=== PATIENT | male | born 1995 | race Caucasian/White ===

== ENCOUNTER 2016-07-01 08:39 | Emergency (ER) | payer OTHER ==
[2016-07-01 08:51] VITALS: BP 137/64; PULSE 61; TEMP 98.3; BMI 29.8
--- NOTE | 2016-07-01 09:50 | PDOC ---
[id number] PAIN, NUMBNESS/ UPPER EXTREMITIES Time Seen by Provider: 07/01/16 09:20 - History of Present Illness Initial Comments: 07/01/16 09:46 CHIEF COMPLAINT: hand numbness, leg tingling HISTORY OF PRESENT ILLNESS: 20 yo M with no PMH presents to fast track with sudden onset numbness to hands and tingling of legs. Patient states he was using the bathroom this morning when he had some stomach discomfort, loose stools, and then "suddenly my face, hands, and legs felt tingly, and I couldn't erally move my hands." No recent travel or sick contacts. PAST MEDICAL HISTORY: Denies past medical history FAMILY HISTORY: Denies SOCIAL HISTORY: Denies tobacco, alcohol, illicit drug use. SURGICAL HISTORY: Denies ALLERGIES: No known drug allergies REVIEW OF SYSTEMS General/Constitutional: Denies fever or chills. Denies weakness, weight change. HEENT: Denies change in vision. Denies ear pain or discharge. Denies sore throat. Cardiovascular: Denies chest pain or shortness of breath. Respiratory: Denies cough, wheezing, or hemoptysis. Gastrointestinal: Denies nausea, vomiting, diarrhea or constipation. Denies rectal bleeding. Genitourinary: Denies dysuria, frequency, or change in urination. Musculoskeletal: Numbness and tingling to hands and legs. Skin and breasts: Denies rash or easy bruising. Neurologic: Denies headache, vertigo, loss of consciousness, or loss of sensation. PHYSICAL EXAM General Appearance: Well-appearing, appropriately dressed. No apparent distress , no intoxication. HEENT: EOMI, PERRLA, normal ENT inspection, normal voice, TMs normal, pharynx normal. No conjunctival pallor. No photophobia, scleral icterus. Neck: Supple. Trachea midline. No tenderness, rigidity, carotid bruit, stridor , lymphadenopathy, or thyromegaly. Respiratory/Chest: Lungs CTAB. No shortness of breath, chest tenderness, respiratory distress, accessory muscle use. No crackles, rales, rhonchi, stridor , wheezing, dullness Cardiovascular: RRR. S1, S2. No JVD, murmur, bradycardia, tachycardia. Vascular Pulses: Dorsalis-Pedis (R): 2+, Dorsalis-Pedis (L): 2+ Gastrointestinal/Abdominal: Normal bowel sounds. Abdomen soft, non-distended. No tenderness or rebound tenderness. No organomegaly, pulsatile mass, guarding , hernia, hepatomegaly, splenomegaly. Lymphatic: No adenopathy, tenderness. Musculoskeletal/Extremities: Normal inspection. FROM of all extremities, normal capillary refill. Pelvis Stable. No CVA tenderness. No tenderness to extremities, pedal edema, swelling, erythema or deformity. Integumentary: Appropriate color, dry, warm. 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 Fully oriented, alert. Appropriate mood/affect. Motor strength 5/5. No appreciable EOM palsy, facial droop or sensory deficit. 07/30/16 16:51 Past History - Past Medical History Allergies/Adverse Reactions: Allergies Allergy/AdvReac Type Severity Reaction Status Date / Time No Known Allergies Allergy Verified 07/01/16 08:51 Home Medications: Ambulatory Orders NK [No Known Home Medication] 07/01/16 Other medical history: NONE - Psycho/Social/Smoking Cessation Hx Anxiety: No Suicidal Ideation: No Smoking History: Never smoked Hx Alcohol Use: No Drug/Substance Use Hx: No Substance Use Type: None *Physical Exam - Vital Signs Last Vital Signs Temp Pulse Resp BP Pulse Ox 98.3 F 61 20 137/64 99 07/01/16 08:48 07/01/16 08:48 07/01/16 08:48 07/01/16 08:48 07/01/16 08:48 Medical Decision Making - Medical Decision Making 07/30/16 16:52 20 yo M with no PMH presents to ED with numbness and tingling to hands and legs. Exam unremarkable, no loss of sensation appreciated to upper and lower extremities b/l. Advised patient to f/u with neurology for further evaluation of neuropathy. Patient verbalized understanding and agrees to plan. *DC/Admit/Observation/Transfer Diagnosis at time of Disposition: Neuropathy - Discharge Dispostion Disposition: HOME Condition at time of disposition: Stable Admit: No - Referrals Referrals: Marjan Leon MD [Primary Care Provider] - Calixto Garcia MD [Staff Physician] - - Patient Instructions Printed Discharge Instructions: Peripheral Neuropathy Additional Instructions: As discussed, you must follow up with a neurologist by the end of the week for further evaluation of your numbness and tingling. If you experience any headache, dizziness, blurry vision, difficulty speaking, swallowing, or have any changes when walking, or develop any new or worsening symptoms, please return to the ER. - Post Discharge Activity Work/School Note: Back to Work
== END 2016-07-01 09:55 | disposition home or self-care (01) ==
LOC: JERFT 08:39
DX: G62.9 Polyneuropathy, unspecified (principal)
CPT/HCPCS: 99281-25

== ENCOUNTER 2017-01-05 01:36 | Emergency (ER) | payer OTHER ==
--- NOTE | 2017-01-05 02:22 | PDOC ---
Attending Attestation - HPI HPI: 01/05/17 04:02 Patient is a 21 year old male with no significant past medical history who presents to the ED with complaints of diffuse abdominal pain that began tonight at 11pm. Patient reports diffuse abdominal pain beginning tonight after eating dinner. He reports eating octopus and rice but states he is the only individual who is experiencing abdominal pain. Patient reports pain is a stabbing pain rated a 10/10 intensity. He reports experiencing episodes of nausea and vomiting x6 secondary to abdominal pain. Denies urinary problems. Denies fever, chills. Denies any other symptoms. Allergies:None Social history: No smoking. No alcohol. No illicit drugs. Surgical history: None PMD: PCP - Physicial Exam PE: 01/05/17 04:02 GENERAL: +Appears uncomfortable. Awake, alert, and fully oriented, HEAD: No signs of trauma EYES: PERRLA, EOMI, sclera anicteric, conjunctiva clear ENT: Auricles normal inspection, hearing grossly normal, nares patent, oropharynx clear without exudates. Moist mucosa NECK: Normal ROM, supple, no lymphadenopathy, JVD, or masses LUNGS: Breath sounds equal, clear to auscultation bilaterally. No wheezes, and no crackles HEART: Regular rate and rhythm, normal S1 and S2, no murmurs, rubs or gallops ABDOMEN: +Mild epigastric tenderness. Soft, normoactive bowel sounds. No guarding, no rebound. No masses EXTREMITIES: Normal range of motion, no edema. No clubbing or cyanosis. No cords, erythema, or tenderness NEUROLOGICAL: Cranial nerves II through XII grossly intact. Normal speech, normal gait SKIN: Warm, Dry, normal turgor, no rashes or lesions noted. <Thai Willett - Last Filed: 01/05/17 04:02> - Resident Resident Name: Ray Teran - ED Attending Attestation I have performed the following: I have examined & evaluated the patient, The case was reviewed & discussed with the resident, I agree w/resident's findings & plan, Exceptions are as noted - Medical Decision Making Patient improved with GI cocktail. No signs of acute abdomen on exam. Stable for DC home. <Melisa Jane - Last Filed: 01/08/17 08:04>
[2017-01-05 03:01] VITALS: BP 128/72; PULSE 76; BMI 29.8
--- NOTE | 2017-01-05 03:16 | PDOC ---
History of Present Illness - General Chief Complaint: Pain Stated Complaint: ABD PAIN Time Seen by Provider: 01/05/17 02:10 History Source: Patient Exam Limitations: No Limitations - History of Present Illness Initial Comments: 01/05/17 03:10 21 y.o M with no pmh presenting with abdominal pain. Patient states he ate dinner around 8 pm. Around 10 pm he began having cramping/stabbing epigastric pain that gradually increased in intensity. The pain was 10/10 on arrival and nonradiating. Patient took 2 ibuprofen with no improvement in his symptoms. He endorses nausea and 5-6 episodes of emesis. Patient denies diarrhea, back pain, dysuria, hematuria. PSH: none All: nkda SH: denies PCP: patient does not have Past History - Past Medical History Allergies/Adverse Reactions: Allergies Allergy/AdvReac Type Severity Reaction Status Date / Time No Known Allergies Allergy Verified 01/05/17 03:00 Home Medications: Ambulatory Orders NK [No Known Home Medication] 07/01/16 - Suicide/Smoking/Psychosocial Hx Smoking History: Never smoked Have you smoked in the past 12 months: No Information on smoking cessation initiated: No Hx Alcohol Use: No Drug/Substance Use Hx: No Substance Use Type: None Review of Systems - Review of Systems Able to Perform ROS?: Yes Comments:: 01/05/17 03:22 GENERAL/CONSTITUTIONAL: No fever or chills. No weakness. HEAD, EYES, EARS, NOSE AND THROAT: No change in vision. No ear pain or discharge. No sore throat. CARDIOVASCULAR: No chest pain or shortness of breath RESPIRATORY: No cough, wheezing, or hemoptysis. GASTROINTESTINAL: +nausea, +vomiting, No diarrhea or constipation. +Abdominal pain GENITOURINARY: No dysuria, frequency, or change in urination. MUSCULOSKELETAL: No joint or muscle swelling or pain. No neck or back pain. SKIN: No rash NEUROLOGIC: No headache, vertigo, loss of consciousness, or change in strength/ sensation. ENDOCRINE: No increased thirst. No abnormal weight change HEMATOLOGIC/LYMPHATIC: No anemia, easy bleeding, or history of blood clots. ALLERGIC/IMMUNOLOGIC: No hives or skin allergy. *Physical Exam - Vital Signs Last Vital Signs Temp Pulse Resp BP Pulse Ox 76 16 128/72 100 01/05/17 03:00 01/05/17 03:00 01/05/17 03:00 01/05/17 03:00 - Physical Exam Comments: 01/05/17 03:22 GENERAL: Awake, alert, and fully oriented, in mild distress HEAD: No signs of trauma, normocephalic, atraumatic EYES: PERRLA, EOMI, sclera anicteric, conjunctiva clear ENT: Auricles normal inspection, hearing grossly normal, nares patent, oropharynx clear without exudates. Moist mucosa NECK: Normal ROM, supple, no lymphadenopathy, JVD, or masses LUNGS: No distress, speaks full sentences, clear to auscultation bilaterally HEART: Regular rate and rhythm, normal S1 and S2, no murmurs, rubs or gallops, peripheral pulses normal and equal bilaterally. ABDOMEN: Soft, +tenderness to palpation of epigastrium, normoactive bowel sounds. No guarding, no rebound. No masses. Negative dawkins's sign EXTREMITIES: Normal inspection, Normal range of motion, no edema. No clubbing or cyanosis. NEUROLOGICAL: Cranial nerves II through XII grossly intact. Normal speech, normal gait, no focal sensorimotor deficits SKIN: Warm, Dry, normal turgor, no rashes or lesions noted. ED Treatment Course - LABORATORY CBC & Chemistry Diagram: 01/05/17 03:50 01/05/17 03:50 Medical Decision Making - Medical Decision Making 01/05/17 05:16 21 y.o M with no pmh presenting with abdominal pain. Ddx: Acute cholecystitis vs acute bacterial gastroenteritis vs. gastritis vs. GERD Plan: CBC, CMP, Lipase, UA, UCX, morphine, IVF, Zofran 01/05/17 05:20 CBC- wbc 12.4 CMP- Tbili-1.2 Lipase- unremarkable 01/05/17 06:55 UA- unremarkable. Patient to be discharged. *DC/Admit/Observation/Transfer Diagnosis at time of Disposition: Abdominal pain Qualifiers: Abdominal location: epigastric Qualified Code(s): R10.13 - Epigastric pain; R10.13 - Epigastric pain - Discharge Dispostion Disposition: HOME Condition at time of disposition: Stable - Referrals Referrals: Marjan Leon MD [Primary Care Provider] - - Patient Instructions Printed Discharge Instructions: DI for Abdominal Pain-Adult Additional Instructions: Please follow up with a primary care provider within 1 week. If you have chest pain, shortness of breath, or any new/worsening symptoms please come back to the hospital immediately.
[2017-01-05] MEDS ORDERED: morphine CARPU-JECT 2 MG/1 ML DISP.SYRIN IVPUSH ONE (03:21)
[2017-01-05] MEDS ORDERED: ONDANSETRON 4 MG/2 ML VIAL IVPUSH ONE (03:21)
[2017-01-05] MEDS ORDERED: FAMOTIDINE 20 MG/50 ML IVPB 50 ML IVPB ONE ×2 (03:21→03:40)
[2017-01-05] MEDS ORDERED: SODIUM CHLORIDE 1,000 ML IV STA (03:21)
[2017-01-05] MEDS ORDERED: morphine CARPU-JECT 4 MG/1 ML DISP.SYRIN IVPUSH ONE (03:24)
[2017-01-05] MEDS ORDERED: morphine CARPU-JECT 4 MG/1 ML DISP.SYRIN ONE (03:40)
[2017-01-05] MEDS ORDERED: ONDANSETRON 4 MG/2 ML VIAL ONE (03:40)
[2017-01-05 03:59] LABS: BASOPHIL 0.5 % (0-2.0); EOSINOPHIL 0.5 % (0-4.5); MCHC 33.6 g/dl (32.0-35.9); MEAN CELL VOLUME 86.2 fl (80-96); NEUTROPHILS 81.4 % (42.8-82.8); PLATELET COUNT 235 K/MM3 (134-434); RDW 12.8 % (11.9-15.9); WHITE BLOOD COUNT 12.4 K/mm3 (4.0-10.0)
[2017-01-05 05:00] LABS: ALBUMIN 4.9 g/dl (3.4-5.0); ANION GAP 9 (8-16); BILIRUBIN,TOTAL 1.2 mg/dL (0.2-1.0); CALCIUM 9.7 mg/dL (8.5-10.1); CO2 26 mmol/L (21-32); CREATININE 1.2 mg/dL (0.7-1.3); GLUCOSE,RANDOM 113 mg/dL (74-106); SGOT/AST 14 U/L (15-37); SGPT/ALT 36 U/L (12-78); TOT PROT 7.9 g/dl (6.4-8.2)
[2017-01-05 05:01] LABS: ALK PHOS 78 U/L (45-117)
[2017-01-05 06:50] LABS: URINE APPEARANCE CLOUDY; URINE BILIRUBIN NEGATIVE (NEGATIVE); URINE BLOOD NEGATIVE (NEGATIVE); URINE COLOR YELLOW; URINE GLUCOSE (UA) NEGATIVE (NEGATIVE); URINE KETONE 1+ (NEGATIVE); URINE LEUK ESTERASE NEGATIVE (NEGATIVE); URINE NITRITE NEGATIVE (NEGATIVE); URINE UROBILINOGEN NEGATIVE mg/dL (0.2-1.0)
[2017-01-05 06:53] LABS: URINE PROTEIN 3+ (NEGATIVE)
[2017-01-05 06:55] LABS: URINE MUCUS RARE; URINE RBC 30 /hpf (0-3)
== END 2017-01-05 07:09 | disposition home or self-care (01) ==
LOC: JER 01:36
PROC: 3E033GC Introduction of Other Therapeutic Substance into Peripheral Vein, Percutaneous Approach (ICD-10-PCS; principal; 2017-01-05)
PROC: 3E033NZ Introduction of Analgesics, Hypnotics, Sedatives into Peripheral Vein, Percutaneous Approach (ICD-10-PCS; 2017-01-05)
PROC: 3E033NZ Introduction of Analgesics, Hypnotics, Sedatives into Peripheral Vein, Percutaneous Approach (ICD-10-PCS; 2017-01-05)
PROC: 3E033GC Introduction of Other Therapeutic Substance into Peripheral Vein, Percutaneous Approach (ICD-10-PCS; 2017-01-05)
DX: R10.13 Epigastric pain (principal)
CPT/HCPCS: 36415; 80053; 81003; 81015; 83690; 85025; 87086; 96365; 96375; 99283-25

== ENCOUNTER 2017-01-12 05:37 | Emergency (ER) | payer OTHER ==
--- NOTE | 2017-01-12 05:48 | PDOC ---
History of Present Illness - General History Source: Patient Exam Limitations: No Limitations - History of Present Illness Initial Comments: 01/12/17 05:56 21 y/o M with no PMHx presents to the ED with epigastric pain for one week. He reports associated nausea and back pain. Patient came to the ER last week for similar symptoms and was discharged with Zofran. Since then, the pain has gotten progressively worse. He now rates the pain an 8/10. His last BM was 3 days ago. He denies nausea, vomiting, diarrhea. <Laurel Loving - Last Filed: 01/12/17 05:56> <Montserrat Beckwith - Last Filed: 01/15/17 09:08> - General Stated Complaint: ABD PAIN Time Seen by Provider: 01/12/17 05:45 Past History <Laurel Loving - Last Filed: 01/12/17 05:56> - Surgical History Abdominal Surgery: No Appendectomy: No Cardiac Surgery: No Cholecystectomy: No Gastric Stapling: No GI Surgery: No Lung Surgery: No Neurologic Surgery: No - Immunization History Immunization Up to Date: No - Suicide/Smoking/Psychosocial Hx Smoking History: Never smoked Have you smoked in the past 12 months: No Hx Alcohol Use: No Drug/Substance Use Hx: No Substance Use Type: None <Montserrat Beckwith - Last Filed: 01/15/17 09:08> - Past Medical History Allergies/Adverse Reactions: Allergies Allergy/AdvReac Type Severity Reaction Status Date / Time No Known Allergies Allergy Verified 01/05/17 03:00 Home Medications: Ambulatory Orders Ondansetron HCl [Zofran] 4 mg PO DAILY #14 tablet 01/05/17 Mag Hydrox/Al Hydrox/Simeth [Mylanta Suspension -] 30 ml PO Q6H #1 bottle Ranitidine HCl [Zantac] 150 mg PO DAILY #30 tablet 01/12/17 Review of Systems - Review of Systems Able to Perform ROS?: Yes Comments:: 01/12/17 05:59 GENERAL/CONSTITUTIONAL: No fever or chills. No weakness. HEAD, EYES, EARS, NOSE AND THROAT: No change in vision. No ear pain or discharge. No sore throat. CARDIOVASCULAR: No chest pain or shortness of breath. RESPIRATORY: No cough, wheezing, or hemoptysis. GASTROINTESTINAL: (+) epigastric pain, nausea. No vomiting, diarrhea GENITOURINARY: No dysuria, frequency, or change in urination. MUSCULOSKELETAL: (+) back pain. No joint or muscle swelling or pain. No neck pain. SKIN: No rash NEUROLOGIC: No headache, vertigo, loss of consciousness, or change in strength/ sensation. ENDOCRINE: No increased thirst. No abnormal weight change. HEMATOLOGIC/LYMPHATIC: No anemia, easy bleeding, or history of blood clots. ALLERGIC/IMMUNOLOGIC: No hives or skin allergy. <Laurel Loving - Last Filed: 01/12/17 05:56> *Physical Exam - Vital Signs Last Vital Signs Temp Pulse Resp BP Pulse Ox 97.4 F L 55 L 19 133/74 100 01/12/17 05:53 01/12/17 05:53 01/12/17 05:53 01/12/17 05:53 01/12/17 05:53 - Physical Exam Comments: 01/12/17 06:00 GENERAL: Awake, alert, and fully oriented HEAD: No signs of trauma EYES: PERRLA, EOMI, sclera anicteric, conjunctiva clear ENT: Auricles normal inspection, hearing grossly normal, nares patent, oropharynx clear without exudates. Moist mucosa NECK: Normal ROM, supple, no lymphadenopathy, JVD, or masses LUNGS: Breath sounds equal, clear to auscultation bilaterally. No wheezes, and no crackles HEART: Regular rate and rhythm, normal S1 and S2, no murmurs, rubs or gallops ABDOMEN: Tenderness to RUQ, epigastric, and LUQ. Soft, normoactive bowel sounds. No guarding, no rebound. No masses EXTREMITIES: Normal range of motion, no edema. No clubbing or cyanosis. No cords, erythema, or tenderness NEUROLOGICAL: Cranial nerves II through XII grossly intact. Normal speech, normal gait SKIN: Warm, Dry, normal turgor, no rashes or lesions noted. Bedside US was negative for gallbladder wall thickening, pericholecystic fluid, or gallstones. <Laurel Loving - Last Filed: 01/12/17 05:56> ED Treatment Course - LABORATORY CBC & Chemistry Diagram: 01/12/17 05:50 01/12/17 06:05 <Montserrat Beckwith - Last Filed: 01/15/17 09:08> Medical Decision Making - Medical Decision Making 01/12/17 06:02 21yo male with epigastric pain and nausea -poss gastritis vs pud vs acute arelis -bedside gallbladder ultrasound negative for acute arelis -labs, urine, gi cocktail, reassess 01/12/17 06:41 pt still c/o nausea, just medicated. pt will be signed out to the oncoming ED physician pending labs and re-eval <Montserrat Beckwith - Last Filed: 01/15/17 09:08> *DC/Admit/Observation/Transfer - Attestations Scribe Attestion: 01/12/17 06:01 Documentation prepared by Laurel Loving, acting as biomedical field service engineer for Montserrat Beckwith DO. <Laurel Loving - Last Filed: 01/12/17 05:56> - Attestations Physician Attestion: 01/15/17 09:08 I, Dr. Montserrat Beckwith DO, attest that this document has been prepared under my direction and personally reviewed by me in its entirety. I further attest, that it accurately reflects all work, treatment, procedures and medical decision -making performed by me. <Montserrat Beckwith - Last Filed: 01/15/17 09:08> Diagnosis at time of Disposition: Abdominal pain Qualifiers: Abdominal location: epigastric Qualified Code(s): R10.13 - Epigastric pain - Discharge Dispostion Disposition: HOME Condition at time of disposition: Stable - Prescriptions Prescriptions: Mag Hydrox/Al Hydrox/Simeth [Mylanta Suspension -] 30 ml PO Q6H #1 bottle Ranitidine HCl [Zantac] 150 mg PO DAILY #30 tablet - Referrals Referrals: Marjan Leon MD [Primary Care Provider] - Gilbert Garcia MD [Staff Physician] - - Patient Instructions Printed Discharge Instructions: DI for Abdominal Pain-Adult Additional Instructions: Thank you for coming in to the ER today Please take medications as prescribed Please follow up with the GI doctor within 2-3 days Monitor yourself for any new symptoms, fevers, chills, vomiting, diarrhea Return to the ER for any other concerns or complaints - Post Discharge Activity Forms/Work/School Notes: Back to Work
[2017-01-12 05:55] VITALS: BMI 29.8
[2017-01-12] MEDS ORDERED: SODIUM CHLORIDE 0.9% 1000 ML INFUS.BAG IV ONE (05:59)
[2017-01-12] MEDS ORDERED: ONDANSETRON 4 MG/2 ML VIAL IVPUSH ONE (05:59)
[2017-01-12] MEDS ORDERED: FAMOTIDINE 20 MG/50 ML IVPB 50 ML IVPB ONE (05:59)
[2017-01-12] MEDS ORDERED: MAG HYDROX/AL HYDROX/SIMETH 30 ML UNIT-DOSE CUP PO ONE (05:59)
[2017-01-12] MEDS ORDERED: LIDOCAINE VISCOUS 2% ORAL/TOP 20 ML UNIT-DOSE CUP MM ONE (05:59)
[2017-01-12] MEDS ORDERED: ONDANSETRON *ODT* 4 MG TABLET SL ONE (06:01)
[2017-01-12] MEDS ORDERED: ONDANSETRON *ODT* 4 MG TABLET ONE (06:08)
[2017-01-12] MEDS ORDERED: MAG HYDROX/AL HYDROX/SIMETH 30 ML UNIT-DOSE CUP ONE (06:08)
[2017-01-12] MEDS ORDERED: LIDOCAINE VISCOUS 2% ORAL/TOP 20 ML UNIT-DOSE CUP ONE (06:08)
[2017-01-12 06:19] LABS: BASOPHIL 0.6 % (0-2.0); EOSINOPHIL 1.6 % (0-4.5); MCH 29.2 pg (25.7-33.7); MCHC 33.8 g/dl (32.0-35.9); MEAN CELL VOLUME 86.4 fl (80-96); MEAN PLT VOLUME 8.7 fl (7.5-11.1); NEUTROPHILS 58.9 % (42.8-82.8); PLATELET COUNT 236 K/MM3 (134-434); RDW 12.5 % (11.9-15.9); WHITE BLOOD COUNT 11.1 K/mm3 (4.0-10.0)
[2017-01-12 06:40] LABS: ALBUMIN 4.6 g/dl (3.4-5.0); ALK PHOS 71 U/L (45-117); ANION GAP 9 (8-16); BILIRUBIN,TOTAL 1.1 mg/dL (0.2-1.0); CALCIUM 9.8 mg/dL (8.5-10.1); CO2 29 mmol/L (21-32); CREATININE 1.3 mg/dL (0.7-1.3); GLUCOSE,RANDOM 97 mg/dL (74-106); MAGNESIUM 2.4 mg/dL (1.8-2.4); SGOT/AST 14 U/L (15-37); SGPT/ALT 27 U/L (12-78); TOT PROT 7.2 g/dl (6.4-8.2)
[2017-01-12 06:53] LABS: URINE APPEARANCE CLEAR; URINE BILIRUBIN NEGATIVE (NEGATIVE); URINE BLOOD 1+ (NEGATIVE); URINE COLOR LTYELLOW; URINE GLUCOSE (UA) NEGATIVE (NEGATIVE); URINE KETONE TRACE (NEGATIVE); URINE NITRITE NEGATIVE (NEGATIVE); URINE UROBILINOGEN NEGATIVE mg/dL (0.2-1.0)
[2017-01-12 07:10] LABS: URINE PROTEIN 1+ (NEGATIVE)
[2017-01-12 07:16] LABS: URINE BACTERIA RARE /hpf (NONE SEEN); URINE HYALINE CAST 4 /lpf; URINE MUCUS RARE; URINE RBC 1 /hpf (0-3); URINE WBC 5 /hpf (3-5)
[2017-01-12] MEDS ORDERED: KETOROLAC TROMETHAMINE 30 MG/1 ML VIAL IVPUSH ONE (08:02)
--- NOTE | 2017-01-12 08:20 | PDOC ---
*Physical Exam - Vital Signs Last Vital Signs Temp Pulse Resp BP Pulse Ox 97.4 F L 55 L 19 133/74 100 01/12/17 05:53 01/12/17 05:53 01/12/17 05:53 01/12/17 05:53 01/12/17 05:53 ED Treatment Course - LABORATORY CBC & Chemistry Diagram: 01/12/17 05:50 01/12/17 06:05 - ADDITIONAL ORDERS Additional order review: Laboratory Results 01/12/17 01/12/17 06:27 06:05 Sodium 141 Potassium 4.0 Chloride 103 Carbon Dioxide 29 Anion Gap 9 BUN 16 D Creatinine 1.3 Creat Clearance w eGFR > 60 Random Glucose 97 Calcium 9.8 Magnesium 2.4 Total Bilirubin 1.1 H AST 14 L ALT 27 D Alkaline Phosphatase 71 Total Protein 7.2 Albumin 4.6 Lipase 126 Urine Color Ltyellow Urine Appearance Clear Urine pH 5.0 D Urine Protein 1+ H D Urine Glucose (UA) Negative Urine Ketones Trace H Urine Blood 1+ H Urine Nitrite Negative Urine Bilirubin Negative Urine Urobilinogen Negative Urine RBC 1 Urine WBC 5 Urine Bacteria Rare Hyaline Casts 4 Urine Mucus Rare 01/12/17 05:50 RBC 5.01 MCV 86.4 MCHC 33.8 RDW 12.5 MPV 8.7 Neutrophils % 58.9 D Lymphocytes % 31.2 D Monocytes % 7.7 Eosinophils % 1.6 D Basophils % 0.6 - RADIOLOGY Radiology Studies Ordered: Category Date Time Status SPIRAL- RENAL-STONE CT [CT] Stat CT Scan 01/12/17 08:02 Ordered - Medications Given in the ED: ED Medications Discontinued Medications Generic Name Dose Route Start Last Admin Trade Name Gwen PRN Reason Stop Dose Admin Al Hydroxide/Mg Hydroxide 30 ml 01/12/17 05:59 01/12/17 06:29 Mylanta Oral Suspension - PO 01/12/17 06:00 30 ml ONCE ONE Administration Lidocaine HCl 20 ml 01/12/17 05:59 01/12/17 06:29 Xylocaine 2% Viscous Oral - MM 01/12/17 06:00 20 ml ONCE ONE Administration Ondansetron HCl 4 mg 01/12/17 06:01 01/12/17 06:09 Zofran Odt - SL 01/12/17 06:02 4 mg ONCE ONE Administration Medical Decision Making - Medical Decision Making 01/12/17 08:15 I received this patient on sign out Briefly, 21yo male with epigastric pain x 1 week and nausea Pt seen in the ER 1 week ago, given Zofran which did not help S/p bedside US which did not reveal acute cholecystitis There is (+) blood in the urine Pending Spiral CT 01/12/17 06:41 01/12/17 08:20 Laboratory Tests 01/12/17 01/12/17 05:50 06:05 WBC 11.1 H Hgb 14.6 Hct 43.3 Plt Count 236 BUN 16 D Creatinine 1.3 01/12/17 10:[address] negative for acute pathology There is a punctate calcification within the mid pole of the left kidney consistent with nonobstructing calculus no abnormalities of the liver, spleen, pancreas or adrenal glands. Gallbladder is clear 01/12/17 10:47 D/C to home Will ask pt to follow up with GI 01/12/17 10:48 *DC/Admit/Observation/Transfer Diagnosis at time of Disposition: Abdominal pain Qualifiers: Abdominal location: epigastric Qualified Code(s): R10.13 - Epigastric pain - Discharge Dispostion Disposition: HOME Condition at time of disposition: Stable Admit: No - Prescriptions Prescriptions: Mag Hydrox/Al Hydrox/Simeth [Mylanta Suspension -] 30 ml PO Q6H #1 bottle Ranitidine HCl [Zantac] 150 mg PO DAILY #30 tablet - Referrals Referrals: Marjan Leon MD [Primary Care Provider] - Gilbert Garcia MD [Staff Physician] - - Patient Instructions Printed Discharge Instructions: DI for Abdominal Pain-Adult Additional Instructions: Thank you for coming in to the ER today Please take medications as prescribed Please follow up with the GI doctor within 2-3 days Monitor yourself for any new symptoms, fevers, chills, vomiting, diarrhea Return to the ER for any other concerns or complaints - Post Discharge Activity Forms/Work/School Notes: Back to Work
[2017-01-12 09:09] LABS: URINE LEUK ESTERASE Negative (NEGATIVE)
[2017-01-12 11:14] VITALS: BP 136/74; PULSE 62; TEMP 98.6
== END 2017-01-12 11:14 | disposition home or self-care (01) ==
LOC: JER 05:37
PROC: 3E0337Z Introduction of Electrolytic and Water Balance Substance into Peripheral Vein, Percutaneous Approach (ICD-10-PCS; principal; 2017-01-12)
DX: R10.13 Epigastric pain (principal)
CPT/HCPCS: 36415; 74176; 80053; 81003; 81015; 83690; 83735; 85025; 96374; 99283-25

== ENCOUNTER 2019-11-12 13:29 | Emergency (ER) | payer OTHER ==
--- NOTE | 2019-11-12 13:40 | PDOC ---
History of Present Illness - General Chief Complaint: Pain, Acute Stated Complaint: LEFT FLANK PAIN, N/V Time Seen by Provider: 11/12/19 13:36 - History of Present Illness Initial Comments: 11/12/19 14:10 Chief complaint: Left flank pain HPI: Sudden onset of left flank pain this afternoon while playing basketball. However, denies injury or strain of the back. Pain is severe, accompanied by nausea. It radiates to the left lower quadrant of the abdomen and to the left testicle. Review of systems: No recent fever/chills, URI symptoms, sore throat, cough, chest pain, shortness of breath, dysuria, hematuria, or other urinary tract symptoms. No vomiting or diarrhea, hematemesis, melena, or bloody stool. Remainder of systems reviewed and noncontributory Past medical history: History of a renal calcification diagnosed because of back pain in 2017. However, CT at that time did not show any evidence of ureteral or bladder calculus, hydronephrosis, or other sign of renal colic. Otherwise no significant medical or surgical problems past or present. No medications Social history: Denies tobacco alcohol or nonprescription drugs. Fully active without disability Family history reviewed and noncontributory Physical exam: Alert and oriented well-developed well-nourished, mild to moderate distress due to left flank pain. Cooperative Afebrile, vital signs normal No pallor or icterus. HEENT normal Neck supple without bruit mass or nodes Lungs clear, full breath sounds bilaterally CV regular without murmur rub or gallop Abdomen nondistended. Bowel sounds normal. Soft without mass tenderness organomegaly. No CVAT Testes descended bilaterally, without mass or tenderness. No urethral discharge. Neurological intact Impression: Patient symptoms are suggestive of renal colic, due to the characteristics of the pain, location, radiation, and nausea. The other possibility is an inadvertent back injury Plan: Urinalysis, CBC and chemistries, symptomatic treatment. Consider imaging if lab evaluation is suggestive of renal colic. Past History - Medical History Allergies/Adverse Reactions: Allergies Allergy/AdvReac Type Severity Reaction Status Date / Time No Known Allergies Allergy Verified 01/05/17 03:00 Home Medications: Ambulatory Orders Ibuprofen 800 mg PO TID PRN #15 tablet 11/12/19 - Surgical History Abdominal Surgery: No Appendectomy: No Cardiac Surgery: No Cholecystectomy: No Gastric Stapling: No GI Surgery: No Lung Surgery: No Neurologic Surgery: No - Immunization History Immunization Up to Date: No - Psycho-Social/Smoking History Smoking History: Never smoked Have you smoked in the past 12 months: No ED Treatment Course - LABORATORY CBC & Chemistry Diagram: 11/12/19 13:55 11/12/19 13:55 Medical Decision Making - Medical Decision Making 11/12/19 15:21 Urine: 3+ blood, 60-80 red blood cells, no sign of infection CBC and chemistries without significant abnormalities other than slight elevation of liver functions. Patient's pain has resolved. He is resting comfortably. Clinically and hemodynamically stable. 11/12/19 16:20 CT reveals a small calculus in the bladder. This is probably recently passed. There is no hydronephrosis or signs of obstruction. There remains calcification within the kidney. Patient is pain-free at discharge with mother to follow-up with urologist as recommended. Ibuprofen to pharmacy. Return to ER if significant pain recurs and is uncontrolled. Discharge - Discharge Information Problems reviewed: Yes Clinical Impression/Diagnosis: Renal colic on left side Condition: Improved Disposition: HOME - Admission No - Additional Discharge Information Prescriptions: Ibuprofen 800 mg PO TID PRN #15 tablet PRN Reason: Pain - Follow up/Referral Referrals: Lv Crain MD [Staff Physician] - 1 week - Patient Discharge Instructions Patient Printed Discharge Instructions: DI for Kidney Stones Additional Instructions: Drink lots of fluids. Ibuprofen as directed for pain if it recurs. You should follow-up with a urologist as directed in about 1 week. If severe pain recurs or if there is fever/chills, lightheadedness, chest pain, shortness of breath, intractable nausea vomiting or diarrhea, return to ER immediately. - Post Discharge Activity
[2019-11-12] MEDS ORDERED: SODIUM CHLORIDE 1,000 ML IV STA (13:41)
[2019-11-12] MEDS ORDERED: ONDANSETRON 4 MG/2 ML VIAL IVPB ONE (13:41)
[2019-11-12] MEDS ORDERED: KETOROLAC TROMETHAMINE 30 MG/1 ML VIAL IVPUSH ONE (13:41)
[2019-11-12] MEDS ORDERED: KETOROLAC TROMETHAMINE 30 MG/1 ML VIAL ONE (13:49)
[2019-11-12] MEDS ORDERED: ONDANSETRON 4 MG/2 ML VIAL ONE (13:50)
[2019-11-12 14:09] LABS: URINE MUCUS 1+
[2019-11-12 14:10] LABS: EPITHELIAL CELLS RARE /hpf
[2019-11-12 14:15] LABS: BASO % 1.7 % (0-2.0); EOS % 1.6 % (0-4.5); HEMATOCRIT 45.6 % (35.4-49); HEMOGLOBIN 15.1 GM/dl (11.7-16.9); LYMPH % 32.2 % (8-40); MCH 29.7 pg (25.7-33.7); MCHC 33.1 g/dl (32.0-35.9); MEAN CELL VOLUME 89.7 fl (80-96); MEAN PLT VOLUME 9.3 fl (7.5-11.1); MONO % 7.9 % (3.8-10.2); NEUT % 56.6 % (42.8-82.8); PLATELET COUNT 218 K/MM3 (134-434); RBC 5.08 M/mm3 (4.00-5.60); RDW 12.3 % (11.9-15.9); WHITE BLOOD COUNT 7.1 K/mm3 (4.0-10.8)
[2019-11-12 14:16] VITALS: BP 125/68; PULSE 74; TEMP 98.3; BMI 32.5
[2019-11-12 14:23] LABS: ALBUMIN 4.5 g/dl (3.4-5.0); BILIRUBIN,TOTAL 1.2 mg/dl (0.2-1); CALCIUM 9.8 mg/dl (8.5-10); TOT PROT 7.3 g/dl (6.4-8.2)
== END 2019-11-12 16:25 | disposition home or self-care (01) ==
LOC: FER 13:29
PROC: 3E033GC Introduction of Other Therapeutic Substance into Peripheral Vein, Percutaneous Approach (ICD-10-PCS; principal; 2019-11-12)
PROC: 3E0337Z Introduction of Electrolytic and Water Balance Substance into Peripheral Vein, Percutaneous Approach (ICD-10-PCS; principal; 2019-11-12)
DX: N23 Unspecified renal colic (principal)
CPT/HCPCS: 36415; 74176-TC; 80053; 81003; 81015; 85025; 87086; 99285-25

== ENCOUNTER 2021-05-15 12:25 | Emergency (ER) | payer OTHER ==
[2021-05-15] MEDS ORDERED: KETOROLAC TROMETHAMINE 15 MG/ML VIAL ONE (12:38)
[2021-05-15] MEDS ORDERED: KETOROLAC TROMETHAMINE 30 MG/1 ML VIAL IVPUSH ONE (12:51)
[2021-05-15] MEDS ORDERED: SODIUM CHLORIDE 1,000 ML IV ONE (12:51)
[2021-05-15 12:54] VITALS: TEMP 97.8; BMI 30.3
[2021-05-15 13:25] LABS: ALBUMIN 4.7 g/dl (3.4-5.0); BILIRUBIN,TOTAL 2.2 mg/dl (0.2-1); CALCIUM 9.9 mg/dl (8.5-10); CREATININE 1.3 mg/dl (0.55-1.3); TOT PROT 7.2 g/dl (6.4-8.2)
[2021-05-15] MEDS ORDERED: morphine CARPU-JECT 4 MG/1 ML DISP.SYRIN IVPUSH ONE (13:53)
[2021-05-15 14:23] LABS: BASO % 0.3 % (0-2.0); EOS % 1.1 % (0-4.5); HEMATOCRIT 43.4 % (35.4-49); HEMOGLOBIN 14.9 GM/dL (11.7-16.9); LYMPH % 36.8 % (8-40); MCH 29.3 pg (25.7-33.7); MCHC 34.3 g/dl (32.0-35.9); MEAN CELL VOLUME 85.6 fl (80-96); MEAN PLT VOLUME 8.5 fl (7.5-11.1); MONO % 6.5 % (3.8-10.2); NEUT % 55.3 % (42.8-82.8); PLATELET COUNT 229 10^3/uL (134-434); RBC 5.07 M/mm3 (4.00-5.60); WHITE BLOOD COUNT 8.2 K/mm3 (4.0-10.0)
[2021-05-15] MEDS ORDERED: morphine SULFATE 4 MG/ML VIAL ONE (14:33)
[2021-05-15 15:00] LABS: URINE MUCUS 2+
[2021-05-15 15:58] VITALS: BP 116/75; PULSE 78
== END 2021-05-15 15:45 | disposition home or self-care (01) ==
LOC: FER 12:25
PROC: 3E0333Z Introduction of Anti-inflammatory into Peripheral Vein, Percutaneous Approach (ICD-10-PCS; principal; 2021-05-15)
PROC: 3E033NZ Introduction of Analgesics, Hypnotics, Sedatives into Peripheral Vein, Percutaneous Approach (ICD-10-PCS; 2021-05-15)
DX: N20.0 Calculus of kidney (principal)
CPT/HCPCS: 36415; 74176-TC; 80053; 81003; 81015; 85025; 87086; 99284-25